=== PATIENT | female | born 1970 | race Caucasian/White ===

== ENCOUNTER 2017-02-20 10:39 | Emergency (ER) | payer BC, OTHER ==
[~2017-02-20] VITALS: Ht 175.3 cm; Wt 104.3 kg
[2017-02-20] MEDS ORDERED: NS 1,000 ML IV ONE (11:45)
[2017-02-20 12:12] LABS: BASO % 0.5 % (0.0-1.0); EOS # 0.1 K/mm3 (0.0-0.50); EOS % 1.6 % (0.0-3.0); LARGE UNSTAINED CELL # 0.1 K/mm3 (0.0-0.4); LARGE UNSTAINED CELL % 3.3 % (0.0-4.0); LYMPH # 1.3 K/mm3 (1.5-4.5); LYMPH % 25.8 % (24.0-44.0); MEAN CORPUSCULAR HEMOGLOBIN 30.1 pg (27.0-33.0); MEAN CORPUSCULAR HGB CONC 32.7 g/dl (32.0-36.5); MEAN CORPUSCULAR VOLUME 91.9 fl (80.0-96.0); MONO # 0.4 K/mm3 (0.0-0.8); MONO % 8.4 % (0.0-5.0); NEUTROPHILS # 2.6 K/mm3 (1.8-7.7); NEUTROPHILS % 60.5 % (36.0-66.0); PLATELET COUNT, AUTOMATED 234 k/mm3 (150-450); RED CELL DISTRIBUTION WIDTH 12.5 % (11.5-14.5); WHITE BLOOD COUNT 4.3 K/mm3 (4.0-10.0)
[2017-02-20 12:29] LABS: ALBUMIN 3.4 GM/DL (3.2-5.2); ALBUMIN/GLOBULIN RATIO 0.97 (1.00-1.93); ALKALINE PHOSPHATASE 285 U/L (45-117); ALT/SGPT 159 U/L (12-78); ANION GAP 5 MEQ/L (8-16); AST/SGOT 119 U/L (15-37); BILIRUBIN,DIRECT 0.1 MG/DL (0.0-0.2); BILIRUBIN,TOTAL 0.4 MG/DL (0.2-1.0); BLOOD UREA NITROGEN 11 MG/DL (7-18); CALCIUM LEVEL 8.3 MG/DL (8.5-10.1); CARBON DIOXIDE LEVEL 31 MEQ/L (21-32); CHLORIDE LEVEL 106 MEQ/L (98-107); GLOMERULAR FILTRATION RATE > 60.0 (>58); GLUCOSE, FASTING 87 MG/DL (70-105); POTASSIUM SERUM 3.2 MEQ/L (3.5-5.1); SODIUM LEVEL 142 MEQ/L (136-145); TOTAL PROTEIN 6.9 GM/DL (6.4-8.2)
[2017-02-20] MEDS ORDERED: POTASSIUM CHLORIDE 10 MEQ SR TABLET PO ONE (14:45)
[2017-02-20] MEDS ORDERED: GASTROGRAFIN SOLUTION 30ML (Q9963) PO ONE ×2 (15:00→15:30)
[2017-02-20] MEDS ORDERED: ISOVUE-370 76% 100ML VIAL (Q9967) As Ordered ONE (16:32)
--- NOTE | 2017-02-20 17:10 | REPUSA ---
+CT of the abdomen and pelvis with contrast Clinical statement: diarrhea. Technique: Multiple axial CT images were obtained from the base of the lungs through the floor of the pelvis utilizing 5 mm axial slices after administration of oral and nonionic intravenous contrast. C oronal and sagittal reconstructions were also obtained. No comparison is available. Findings: Chest: The visualized lung bases are clear. Abdomen: The spleen, pancreas, kidneys, and adrenal glands are unremarkable. The liver is enlarged, m easuring 25 cm in longest diameter. The aorta is within normal limits. There is no evidence of abdomi nal lymphadenopathy or ascites. Pelvis: The bowel is unremarkable, with no obstructive or inflammatory changes. The appendix is asif l. The urinary bladder is within normal limits. The other pelvic structures appear grossly intact. Th ere is no evidence of pelvic lymphadenopathy or ascites. Bones: There are no suspicious osseous abnormalities seen. Impression: Unremarkable CT examination of the abdomen and pelvis. No acute abnormality to explain th e patient's symptoms.
[2017-02-20] MEDS ORDERED: K-TA1TAB PO (17:46)
[2017-02-20 18:13] VITALS: BP 134/87
== END 2017-02-20 18:14 | disposition home or self-care (01) ==
LOC: M ED 11:38
DX: R19.7 Diarrhea, unspecified (principal); E87.6 Hypokalemia; Z98.84 Bariatric surgery status; Z79.899 Other long term (current) drug therapy
CPT/HCPCS: 74177; 80048; 80076; 85025; 87507; 96360; 96361; 99283; Q9963; Q9967

== ENCOUNTER 2020-05-10 07:36 | Emergency (ER) | payer BC, OTHER ==
[~2020-05-10] VITALS: Ht 172.7 cm; Wt 110.0 kg
[~2020-05-10 07:36] MED LIST: K-TA1TAB PO
[2020-05-10] MEDS ORDERED: HYDR200T3 PO (07:44)
[2020-05-10] MEDS ORDERED: ACET-683 PO (07:44)
[2020-05-10] MEDS ORDERED: TRAM50TA2 (07:44)
[2020-05-10] MEDS ORDERED: KETOROLAC 30 MG/ML 1ML VIAL IV ONE (08:15)
[2020-05-10] MEDS ORDERED: NS 1,000 ML IV ONE (08:30)
[2020-05-10 08:36] LABS: BASO # 0.1 10^3/uL (0.0-0.2); BASO % 0.5 % (0.0-1.0); EOS % 0.1 % (0.0-3.0); HEMATOCRIT 42.6 % (36.0-47.0); HEMOGLOBIN 14.1 g/dl (12.0-15.5); LYMPH # 0.8 10^3/uL (1.5-5.0); LYMPH % 8.2 % (24.0-44.0); MEAN CORPUSCULAR HEMOGLOBIN 30.9 pg (27.0-33.0); MEAN CORPUSCULAR HGB CONC 33.1 g/dl (32.0-36.5); MEAN CORPUSCULAR VOLUME 93.4 fl (80.0-96.0); MONO # 0.4 10^3/uL (0.0-0.8); MONO % 4.2 % (0.0-5.0); NEUTROPHILS # 8.4 10^3/uL (1.5-8.5); NEUTROPHILS % 85.8 % (36.0-66.0); PLATELET COUNT, AUTOMATED 277 10^3/uL (150-450); RED BLOOD COUNT 4.56 10^6/uL (4.00-5.40); WHITE BLOOD COUNT 9.8 10^3/uL (4.0-10.0)
--- NOTE | 2020-05-10 08:47 | REP ---
Clinical: Left flank pain. Technique: Axial noncontrast images from the lung bases to the pubic symphysis with coronal and sagittal re-formations. Comparison: 02/20/2017. Findings: The left kidney demonstrates mild hydroureteronephrosis and perinephric stranding with a 3 mm calculus at the ureterovesicle junction (images 136 - 137). Remainder of the urinary tract system is essentially unremarkable. Liver, spleen, pancreas, and bilateral adrenal glands are normal. Evidence of prior gastric bypass surgery, cholecystectomy and hysterectomy noted. The enteric system is without obstruction or acute inflammatory process. Normal terminal ileum and appendix identified in the right lower quadrant. Pelvis demonstrates relatively normal collapsed bladder and evidence of prior hysterectomy. Incidental 2.5 cm left adnexal cyst noted. No pelvic fluid or ascites. No free air. No adenopathy. Abdominal aorta without aneurysm. Musculoskeletal structures demonstrate age-related changes. Lung bases are clear. Impression: Acute left-sided obstructive uropathy with a 3 mm calculus at the ureterovesicle junction. Electronically Signed by Shai Coker MD 05/10/2020 08:39 A
[2020-05-10 08:57] LABS: ALBUMIN 3.8 GM/DL (3.2-5.2); BILIRUBIN,DIRECT 0.2 MG/DL (0.0-0.2); BILIRUBIN,TOTAL 0.6 MG/DL (0.2-1.0); TOTAL PROTEIN 7.3 GM/DL (6.4-8.2)
[2020-05-10] MEDS ORDERED: FLOM0.4C39 PO (09:27)
[2020-05-10] MEDS ORDERED: KETO10TAB PO (09:27)
[2020-05-10] MEDS ORDERED: TAMSULOSIN 0.4 MG CAP PO ONE (09:30)
[2020-05-10 10:01] VITALS: BP 157/84
== END 2020-05-10 10:03 | disposition home or self-care (01) ==
LOC: M ED 07:36
DX: N20.1 Calculus of ureter (principal); M32.9 Systemic lupus erythematosus, unspecified; Z79.899 Other long term (current) drug therapy; Z98.84 Bariatric surgery status
CPT/HCPCS: 74176; 80047; 80076; 81001; 83690; 85025; 96361; 96374; 99284; J1885

== ENCOUNTER 2023-09-09 05:15 | Emergency (ER) | payer BC, OTHER ==
[~2023-09-09] VITALS: Ht 175.3 cm; Wt 113.6 kg
[~2023-09-09 05:15] MED LIST changes: +ACET-683 PO; +FLOM0.4C39 PO; +HYDR200T46 PO; +KETO10TAB PO; +TRAM50TA2
[2023-09-09] MEDS ORDERED: METH2.5T48 (05:23)
[2023-09-09] MEDS ORDERED: KETOROLAC 30 MG/ML 1ML VIAL IV ONE (07:00)
[2023-09-09] MEDS ORDERED: KETO10TAB PO (08:02)
[2023-09-09] MEDS ORDERED: ONDA4TAB6 PO (08:02)
[2023-09-09] MEDS ORDERED: FLOM0.4C39 PO (08:02)
[2023-09-09 08:12] VITALS: BP 138/81; TEMP 97.1; O2SAT 99
== END 2023-09-09 08:16 | disposition home or self-care (01) ==
LOC: M ED 05:15
DX: N20.1 Calculus of ureter (principal); F10.10 Alcohol abuse, uncomplicated; M32.10 Systemic lupus erythematosus, organ or system involvement unspecified; Z87.442 Personal history of urinary calculi; Z79.83 Long term (current) use of bisphosphonates; Z79.1 Long term (current) use of non-steroidal anti-inflammatories (NSAID); Z79.899 Other long term (current) drug therapy
CPT/HCPCS: 74176; 81001; 96374; 99284; J1885

== ENCOUNTER → 2023-10-11 | Outpatient (CLI) | payer BC, OTHER ==
[~2023-10-11] MED LIST changes: +METH2.5T48; +ONDA4TAB6 PO
[2023-10-11 18:57] LABS: APPEARANCE, URINE HAZY (CLEAR); BACTERIA, URINE AUTO 1+ (NEGATIVE); BILIRUBIN, URINE AUTO NEGATIVE (NEGATIVE); BLOOD, URINE BLOOD NEGATIVE (NEGATIVE); COLOR, URINE YELLOW (YELLOW); GLUCOSE, URINE (UA) AUTO NEGATIVE (NEGATIVE); KETONE, URINE AUTO NEGATIVE (NEGATIVE); LEUKOCYTE ESTERASE, URINE AUTO NEGATIVE (NEGATIVE); MUCUS, URINE SMALL (NEGATIVE); NITRITE, URINE AUTO NEGATIVE (NEGATIVE); PROTEIN, URINE AUTO NEGATIVE (NEGATIVE); RBC, URINE AUTO 1 /HPF (0-3); SPECIFIC GRAVITY URINE AUTO 1.023 (1.002-1.035); SQUAMOUS EPITHELIAL CELL UR AU 5 /HPF (0-6); WBC, URINE AUTO 2 /HPF (0-3)
== END ==
LOC: M PLALAB 14:32 → M PLAIMG 14:32
PROVIDERS: ATTEND Urology
DX: N20.1 Calculus of ureter (principal)

== ENCOUNTER → 2024-01-30 | Outpatient (CLI) | payer BC | LOC: M PLAIMG 10:44 | PROVIDERS: ATTEND Physician Assistant Surgical | DX: M50.30 Other cervical disc degeneration, unspecified cervical region (principal); M47.892 Other spondylosis, cervical region ==

== ENCOUNTER 2024-04-02 14:21 | Emergency (ER) | payer BC ==
[~2024-04-02] VITALS: Ht 172.7 cm; Wt 118.3 kg
[2024-04-02 14:23] VITALS: TEMP 98.2
[2024-04-02] MEDS ORDERED: LISI10TA22 PO (14:30)
[2024-04-02] MEDS: KETOROLAC 60MG 2ML VIAL IM ONE (17:00)
[2024-04-02 17:05] VITALS: BP 142/98; O2SAT 97
== END 2024-04-02 17:37 | disposition home or self-care (01) ==
LOC: M ED 14:21
DX: M25.461 Effusion, right knee (principal); M17.11 Unilateral primary osteoarthritis, right knee; M25.561 Pain in right knee; I10 Essential (primary) hypertension; Z98.84 Bariatric surgery status; Z79.811 Long term (current) use of aromatase inhibitors; Z79.899 Other long term (current) drug therapy
CPT/HCPCS: 73564; 96374; 99283; J1885

== ENCOUNTER 2025-06-17 10:06 | Emergency (ER) | payer BC ==
[~2025-06-17] VITALS: Ht 172.7 cm; Wt 90.4 kg
[~2025-06-17 10:06] MED LIST changes: -FLOM0.4C39 PO; +LISI10TA22 PO; +ONDA-282 PO; -ONDA4TAB6 PO; +TAMS-18 PO
[2025-06-17 10:16] VITALS: TEMP 96.9
[2025-06-17] MEDS ORDERED: TIRZ7.5P3 (10:25)
[2025-06-17] MEDS ORDERED: SPIR1TAB34 (10:25)
[2025-06-17 11:08] LABS: BASO # 0.1 10^3/uL (0.0-0.2); BASO % 0.7 % (0.0-1.0); EOS # 0.1 10^3/uL (0.0-0.5); EOS % 0.8 % (0.0-3.0); LYMPH # 1.9 10^3/uL (1.5-5.0); LYMPH % 23.1 % (24.0-44.0); MONO # 0.7 10^3/uL (0.0-0.8); MONO % 8.5 % (2.0-8.0); NEUTROPHILS # 5.6 10^3/uL (1.5-8.5); NEUTROPHILS % 66.7 % (36.0-66.0); PLATELET COUNT, AUTOMATED 323 10^3/uL (150-450)
[2025-06-17 11:41] LABS: ALT/SGPT 14.0 U/L (7.0-40); AST/SGOT 17.0 U/L (<34); CALCIUM LEVEL 9.7 MG/DL (8.5-10.1); CARBON DIOXIDE LEVEL 32.0 MMOL/L (20-31); CHLORIDE LEVEL 101.0 MMOL/L (98-107); CREATININE FOR GFR 1.24 MG/DL (0.55-1.30); GLOMERULAR FILTRATION RATE 51.7 (>51); POTASSIUM SERUM 3.6 MMOL/L (3.5-5.1); SODIUM LEVEL 143.0 MMOL/L (136-145)
[2025-06-17 11:43] LABS: FREE T4 1.29 NG/DL (0.89-1.76)
[2025-06-17 12:41] LABS: CK-MB VALUE MASS 1.1 NG/ML (<3.6)
[2025-06-17 12:43] LABS: CPK CREATINE PHOSPHOKINASE 69 U/L (34-145); MB/CK RELATIVE INDEX 1.59 (< OR =4)
[2025-06-17 13:34] LABS: CK-MB VALUE MASS 1.4 NG/ML (<3.6)
[2025-06-17 13:52] LABS: CPK CREATINE PHOSPHOKINASE 73 U/L (34-145); MB/CK RELATIVE INDEX 1.91 (< OR =4)
[2025-06-17 14:00] VITALS: BP 120/77; O2SAT 99
== END 2025-06-17 15:10 | disposition left against medical advice (07) ==
LOC: M ED 10:06
DX: R55 Syncope and collapse (principal); M32.9 Systemic lupus erythematosus, unspecified; Z98.84 Bariatric surgery status; Z79.1 Long term (current) use of non-steroidal anti-inflammatories (NSAID); Z79.899 Other long term (current) drug therapy; Z53.9 Procedure and treatment not carried out, unspecified reason